=== PATIENT | female | born 1965 | race American Indian/Alaskan Native ===

== ENCOUNTER 2017-08-16 10:36 | Outpatient (CLI) | payer MEDICARE ==
--- NOTE | 2017-08-16 14:44 | Ultrasound Report ---
ULTRASOUND PELVIC COMPLETE ULTRASOUND TRANSVAGINAL HISTORY: Cervical mass, pelvic pain. COMPARISON: None. TECHNIQUE: Transabdominal and transvaginal ultrasound with color doppler interrogation. FINDINGS: Uterus: The uterus is retroflexed and measures 9.3 x 4.0 x 4.3 cm. There is suggestion of a 2.8 cm exophytic fibroid from the left lower uterine surface. The cervix is poorly visualized but no obvious cervical mass is identified. Tiny nabothian cysts in the cervix are noted. Endometrium: 9 mm. No focal abnormality. Right ovary: The right ovary measures 3.0 x 1.6 x 1.8 cm. There is a rather large cyst in the right adnexal region measuring up to 5.2 cm in diameter. This presumably represents a right ovarian cyst. Left ovary: 2.4 x 1.7 x 2.0 cm. No focal abnormality. No pelvic fluid or mass is identified. Normal color doppler interrogation. IMPRESSION: Limited exam of the cervix but no obvious cervical mass is identified. Possible uterine fibroid as described. Right adnexal/ovarian cyst as described. Consider further evaluation with CT pelvis with contrast or MRI pelvis with contrast.
== END 2017-08-16 10:37 | disposition home or self-care (01) ==
LOC: US 10:36
DX: N83.201 Unspecified ovarian cyst, right side (principal)
CPT/HCPCS: 76830; 76856

== ENCOUNTER 2017-10-02 09:27 | Outpatient (CLI) | payer MEDICARE ==
--- NOTE | 2017-10-02 16:47 | Cat Scan Report ---
FINAL REPORT EXAM: CT ABDOMEN PELVIS WO/W CON HISTORY: ADNEXAL MASS AND PELVIC PAIN TECHNIQUE: CT examination of the ABDOMEN before and after IV contrast CT examination of the PELVIS before and after IV contrast PRIORS: None. FINDINGS: Normal cardiac size. Relatively clear lung bases. Normal-appearing liver, gallbladder, adrenals, pancreas, and spleen. Intact normal caliber abdominal aorta and IVC. Nonspecific, smoothly marginated, simple appearing, single low density bilateral renal lesion are statistically most likely cysts. Average density is similar to water. No renal calculus or hydronephrosis. No calculus or distention in the visible ureteral segments. Very small fat containing umbilical hernia. Otherwise intact anterior abdominal wall. No retroperitoneal adenopathy. No mesenteric mass. Normal-appearing stomach and duodenum. No small bowel distention in the abdomen and pelvis. No pelvic free fluid. Normal-appearing urinary bladder and rectum. Normal uterus. No sigmoid colon abnormality. No gross ascites, free air, or colonic distention. Normal-appearing cecum, terminal ileum, and appendix. 2.2 cm simple appearing cyst in the left adnexa may be a dominant follicle. 4.7 x 5.8 cm smoothly marginated fluid density lesion in right adnexa may be a follicular cyst. Differential includes hydrosalpinx or tubo-ovarian abscess although there is no evidence of air bubble in the fluid collection. No lesion calcification, septation, or definite mural nodule. IMPRESSION: Nonspecific 2 cm cystic left adnexal lesion may be a dominant follicle in the left ovary Nearly 6 cm nonspecific cystic lesion in the right adnexa may be a follicular cyst. Differential includes hydrosalpinx or tubo-ovarian abscess. Abscess considered less likely given lack of air bubbles in the fluid collection
== END 2017-10-02 09:28 | disposition home or self-care (01) ==
LOC: CT 09:27
DX: N94.9 Unspecified condition associated with female genital organs and menstrual cycle (principal); K42.9 Umbilical hernia without obstruction or gangrene; R10.2 Pelvic and perineal pain
CPT/HCPCS: 74178; Q9967

== ENCOUNTER 2017-12-04 10:26 | Outpatient (CLI) | payer MEDICARE ==
--- NOTE | 2017-12-04 13:37 | Mammography Report ---
Bilateral mammogram: No previous studies of the liver. CAD study utilized. Findings: Scattered glandular parenchyma bilaterally. Focal calcification noted at the approximate 12:00 position of left breast. Circumscribed 2 cm asymmetric density middle third, midportion right breast. Focal 5 mm asymmetric density lower mid left breast. Normal axilla. No microcalcification. Impression: Faint calcification upper left breast. Recommend spot magnification views. Asymmetric density right and left breast. Recommend spot compression followed by sonographic examination if necessary. BI-RADS CATEGORY: 0 = Needs additional imaging evaluation ACR BI-RADS MAMMOGRAPHIC CODES: 0 = Needs additional imaging evaluation; 1 = Negative; 2 = Benign; 3 = Probably benign; 4 = Suspicious; 5 = Malignant; 6 = Known biopsy-proven malignancy COMMENT: 1. Dense breast tissue, i.e., adenosis, fibrocystic changes, etc., may obscure an underlying neoplasm. 2. Approximately 10% of cancers are not detected with mammography. 3. A negative mammography report should not delay biopsy if a clinically suspicious mass is present. COMMENT: Patient follow-up letters are generated in [employer].
== END 2017-12-04 10:27 | disposition home or self-care (01) ==
LOC: MAMMO 10:26
PROVIDERS: ATTEND Obstetrics & Gynecology
DX: Z12.31 Encounter for screening mammogram for malignant neoplasm of breast (principal)
CPT/HCPCS: 77067

== ENCOUNTER 2022-03-16 10:53 | Outpatient (CLI) | payer OTHER ==
--- NOTE | 2022-03-19 10:00 | Mammography Report ---
DIGITAL SCREENING MAMMOGRAM WITH CAD, 03/16/2022 CLINICAL INFORMATION / INDICATION: Routine screening mammography. SCREENING MAMMOGRAM Z12.31 TECHNIQUE: Digital bilateral 2D mammography was obtained in the craniocaudal and mediolateral obliqu e projections. This examination was interpreted with the benefit of Computer-Aided Detection analysis . COMPARISON: 12/04/2017. FINDINGS: Breast Density: The breasts are heterogeneously dense, which may obscure small masses. No dominant mass, suspicious calcifications, or architectural distortion in either breast. IMPRESSION: No mammographic evidence of malignancy. Follow up recommendation: Routine yearly screening mammogram. BI-RADS Category 1: NEGATIVE A "normal" or negative report should not discourage follow up or biopsy of a clinically significant f inding. A written summary of these findings will be mailed to the patient. The patient will be entered into a mammography reporting system which will generate a reminder letter for the patient's next appointmen t at the appropriate interval. The [employer] recommends yearly mammograms starting at age 40 and continuing as l parker as a woman is in good health. Breast MRI is recommended for women with an approximate 20-25% or greater lifetime risk of breast cancer, including women with a strong family history of breast or ova madelyn cancer or who have been treated for Hodgkin's disease. Signer Name: Corey Sterling MD Signed: 03/19/2022 9:55 AM Workstation Name: [id number]
== END 2022-03-16 10:54 | disposition home or self-care (01) ==
LOC: MAMMO 10:53
DX: Z12.31 Encounter for screening mammogram for malignant neoplasm of breast (principal)
CPT/HCPCS: 77067